=== PATIENT | female | born 1930 | race Caucasian/White ===

== ENCOUNTER 2016-10-02 13:39 | Inpatient (IN) | payer OTHER ==
[~2016-10-02] VITALS: Ht 162.6 cm; Wt 59.3 kg
--- NOTE | ~2016-10-02 | EKG ---
[address] [address] ELECTROCARDIOGRAM REPORT Name: REJI NICK Room #: REG MARY JANE Escobedo#: [id number] Admission: 10/02/16 Attend Phys: Discharge: Date of : 28 Report #: [id number] THIS REPORT FOR: //name// [facility] ED Test Date: 2016-10-02 Test Time: 13:58:00 Pat Name: REJI NICK Department: Room: Gender: F Product Finisher: MZOOK : 1930 Requested By: Lv Koo Order Number: [id number] MD: Truman Bull Measurements Intervals [place] Rate: 77 P: 40 CA: 207 QRS: -24 QRSD: 96 T: 44 QT: 393 QTc: 445 Interpretive Statements Sinus rhythm Borderline left axis deviation Electronically Signed On 10-02-2016 15:58:53 CDT by Truman Bull [email or web address] <ELECTRONICALLY SIGNED> By: Truman Bull MD 10/02/16 1558 [id number] Truman Bull MD /EPI
--- NOTE | ~2016-10-02 | HC ---
[facility] [place] [address] CONSULTATION Name: REJI NICK Room #: 306-P ADM IN M.R.#: [id number] Admission: 10/02/16 Attend Phys: Jonathan Valle MD Discharge: Date of : 28 Report #: [id number] THIS REPORT FOR: //name// CC: David Valle REASON FOR CONSULTATION: I was asked to evaluate concerning fever and leukocytosis. HISTORY OF PRESENT ILLNESS: The patient is an 85-year-old with known history of hiatal hernia, status post Adelaide fundoplication, diverticular disease along with stroke and coronary artery disease. She was diagnosed with a sinus infection approximately 2 weeks ago. She was given a 10-day course of amoxicillin. She finished this course of treatment, but toward the end, she stated feeling worse with not only continued sinus drainage, intermittent cough with purulent sputum production, but increased lower abdominal discomfort associated with diarrhea. She has known diverticular disease and has chronic loose stools with occasional incontinence. No vomiting. No blood in her stool. No blood in her sputum. She has had some chills along with a low-grade fever. On presentation to the emergency room, there was concern about lower abdominal infection, a CAT scan was performed today. I am awaiting final report from this study. PAST MEDICAL HISTORY: She has a past history of hiatal hernia, Adelaide fundoplication, stroke, coronary artery disease, appendectomy, hysterectomy, nephrolithiasis, cholecystectomy, cataract surgery, lactose intolerance, hypothyroidism, and diverticulitis. ALLERGIES: None. MEDICATIONS: As noted on her MAR, which were reviewed, now on ceftriaxone. FAMILY HISTORY: Noncontributory. SOCIAL HISTORY: Nonsmoker, no significant alcohol intake. REVIEW OF SYSTEMS: As noted above. PHYSICAL EXAMINATION: VITAL SIGNS: Afebrile, hemodynamically stable. GENERAL: Alert, cooperative and pleasant, in no acute distress. SKIN: Unremarkable. LYMPH: Unremarkable. EYES: Unremarkable. MOUTH: Unremarkable. She did have some sinus congestion noted to her voice. She had intermittent nonproductive cough. LUNGS: Basilar crackles. [facility] [address] [place] [address] CONSULTATION Name: REJI NICK Room #: 306-P [facility] IN M.R.#: [id number] Admission: 10/02/16 Attend Phys: Jonathan Valle MD Discharge: Date of : 28 Report #: [id number] HEART: Regular, without murmur. ABDOMEN: Soft. She had tenderness predominantly in the left lower quadrant. No hepatosplenomegaly or definite mass. RECTAL: Not performed. No adenopathy. NEUROLOGIC: Nonfocal. LABORATORY STUDIES: Hemoglobin 11, white count 19.5 with 16% bands, and platelet count 282,000. Sodium 136, potassium 3.5, bicarbonate 23, and creatinine 0.9. BNP 1221. Alkaline phosphatase 144. Liver function test normal. Urinalysis had 1+ protein. Chest x-ray showed basilar atelectasis, greatest on the left. IMPRESSION: An 85-year-old with generalized fatigue, chills, intermittent low-grade fever starting with sinus infection and probable bronchitis, now I am suspecting more abdominal issue with diverticulitis. It is possible she could have an area of ischemic colitis. Clostridium difficile colitis would also be possible. I would recommend that we change her antibiotics to Zosyn. We will await CT scan of the abdomen and pelvis. We will image her sinuses to evaluate for sinusitis and obstruction. Check a sputum , stool for Clostridium difficile by PCR. <ELECTRONICALLY SIGNED> By: Galileo Wright MD 10/04/16 1210 1624 [id number] Galileo Wright MD /nt
--- NOTE | ~2016-10-02 | H ---
[facility] [place] [address] HISTORY AND PHYSICAL Name: REJI NICK Room #: 306-P ADM IN M.R.#: [id number] Admission: 10/02/16 Attend Phys: Jonathan Valle MD Discharge: Date of : 28 Report #: [id number] THIS REPORT FOR: //name// CC: David Valle CHIEF COMPLAINT: Abdominal pain, nausea and weakness. HISTORY OF PRESENT ILLNESS: The patient is an 85-year-old female who was admitted to the Emergency Room with about a week history of general weakness. She said about a month ago, she was treated with oral antibiotics for diverticulitis episode. In the last week, she has taken amoxicillin for 10 days related to a spinous infection. However, yesterday, she reported "feeling worse" with symptoms of nausea, anorexia, abdominal discomfort and general weakness. She does not report any significant weight loss, but says she has been feel weak for about a month. She denies any urinary symptoms or shortness of breath. She has had an occasional productive cough. PAST MEDICAL HISTORY: Cerebrovascular disease with remote history of stroke and hiatal hernia, hypothyroidism. PAST SURGICAL HISTORY: Hysterectomy, appendectomy, cholecystectomy. FAMILY HISTORY: Noncontributory. SOCIAL HISTORY: She lives at home. No chronic alcohol or tobacco use. ALLERGIES: None. MEDICATIONS: Ambien, ibuprofen, calcium, Nexium, Levoxyl. REVIEW OF SYSTEMS: She denies headache, chest pain, shortness of breath, dysuria, myalgias, syncope, fall. PHYSICAL EXAMINATION: VITAL SIGNS: Temperature 37.2, pulse 76, respirations 14, blood pressure 113/65, O2 sat 95% on room air. GENERAL: She is awake and alert, in no distress. HEAD AND NECK: Unremarkable. LUNGS: Clear with no wheezing. HEART: Regular, without murmur. ABDOMEN: Soft, normoactive bowel sounds. No rebound or guarding. There is slight tenderness in the suprapubic area. EXTREMITIES: No cyanosis, clubbing or edema. NEUROLOGIC: Motor strength 4/5 throughout. LABORATORY DATA: Urinalysis had protein, ketones, blood, leukocyte esterase and [facility] [address] [place] [address] HISTORY AND PHYSICAL Name: REJI NICK Room #: 306-P ADM IN M.R.#: [id number] Admission: 10/02/16 Attend Phys: Jonathan Valle MD Discharge: Date of : 28 Report #: [id number] a few bacteria. White blood cell count was 23, sodium was 133 with BUN 26, creatinine 1.5. Troponin was negative. Albumin 2.8. ASSESSMENT: 1. Abdominal pain. 2. Leukocytosis. 3. Acute cystitis. 4. Acute kidney injury due to prerenal status. 5. Moderate protein calorie malnutrition, albumin 2.8. PLAN: Blood cultures will be obtained. She will continue empiric Rocephin. I will ask Dr. Galileo Wright to see her in consultation. CT of the abdomen and pelvis will be obtained and Lovenox for DVT prophylaxis. <ELECTRONICALLY SIGNED> By: Mode Briggs MD 10/04/16 1015 1009 [id number] Mode Briggs MD /nt
[~2016-10-02 13:39] MED LIST: ADVIL100 M2 PO; AMBIEN 5 MG TABL5 M1 PO; AMLODIPINE BESYL5 M1 PO; B-12500 MCG PO; BENZONATATE100 MG; CALTRATE 600 +1 EACH; CENTRUM SILVER1 EAC4 PO; CIPRO250 M1 PO; CIPROFLOXACIN500 M1 PO; FLAGYL 250 MG250 MG PO; FLAGYL500 MG PO; IRON325; LEVAQUIN 500 M500 MG PO; LEVOTHROID; LEVOTHROID75 MCG PO; MUCUS ER600 MG; NEXIUM40 MG PO; ZOFRAN ODT4 MG PO
[2016-10-02 13:52] VITALS: BP 95/62
[2016-10-02 14:55] LABS: HEMATOCRIT 37.8 % (37.0-47.0); HEMOGLOBIN 12.5 gm/dL (12.0-15.0); MCH 31.8 pg (26.0-34.0); MCV 96.4 fL (80.0-100.0); RBC 3.92 mil/uL (4.20-5.00); RDW 13.1 % (10.5-14.5)
[2016-10-02 15:01] LABS: ANION GAP 9 mmol/L (7-16); BUN 26 mg/dL (7-18); CHLORIDE 100 mmol/L (98-107); CO2 24 mmol/L (21-32); CREATININE 1.5 mg/dL (0.6-1.0); GLUCOSE 100 mg/dL (74-106); POTASSIUM 3.7 mmol/L (3.5-5.1); SODIUM 133 mmol/L (136-145)
[2016-10-02 15:07] LABS: ALBUMIN 2.8 g/dL (3.4-5.0); ALKALINE PHOSPHATASE 144 U/L (46-116); DIRECT BILIRUBIN 0.2 mg/dL (<0.1-0.3); SGOT 22 U/L (15-37); SGPT 39 U/L (30-65); TOTAL BILIRUBIN 0.8 mg/dL (<0.1-1.0); TOTAL PROTEIN 6.6 g/dL (6.4-8.2); TROPONIN-I < 0.04 ng/mL (<0.04-0.07)
[2016-10-02 17:13] LABS: URINE BLOOD 1+ (Negative); URINE COLOR YELLOW; URINE GLUCOSE-RANDOM* NEGATIVE (Negative); URINE KETONES TRACE (Negative); URINE LEUKOCYTES-REFLEX 1+ (Negative); URINE PROTEIN (DIPSTICK) 1+ (Negative); URINE SPECIFIC GRAVITY 1.015 (1.003-1.035); URINE UROBILINOGEN 0.2 E.U./dl (0.2-1.0)
[2016-10-02 17:17] LABS: URINE BILIRUBIN NEGATIVE (Negative)
[2016-10-02 17:20] LABS: SQUAMOUS 0-3 Few /LPF (0-3); URINE RBC 0-2 Rare /HPF (0-2); URINE WBC-REFLEX 0-5 Rare /HPF (0-5)
[2016-10-02 17:21] LABS: CASTS None Seen /LPF (None Seen); CRYSTALS None Seen /LPF (None Seen)
[2016-10-02 19:56] VITALS: BP 105/64
[2016-10-02 23:30] VITALS: BP 127/59
[2016-10-03 04:00] VITALS: BP 125/59
[2016-10-03 07:46] VITALS: BP 113/65
[2016-10-03 11:39] LABS: HEMATOCRIT 32.7 % (37.0-47.0); MCH 32.2 pg (26.0-34.0); MCHC 33.7 g/dL (28.0-37.0); MCV 95.6 fL (80.0-100.0); PLATELET COUNT 282 thou/uL (150-400); RBC 3.42 mil/uL (4.20-5.00); RDW 12.9 % (10.5-14.5); WBC 19.5 thou/uL (4.0-11.0)
[2016-10-03 11:43] LABS: MANUAL DIFF YES
[2016-10-03 12:08] LABS: CALCIUM 8.3 mg/dL (8.5-10.1); CREATININE 0.9 mg/dL (0.6-1.0); POTASSIUM 3.5 mmol/L (3.5-5.1)
[2016-10-03 12:13] LABS: ABSOLUTE NEUTROPHILS 15.4 thou/uL (1.4-8.2); PLATELET ESTIMATE NORMAL; TOTAL CELL COUNT 100
[2016-10-03 16:35] VITALS: BP 133/55
[2016-10-03 19:50] VITALS: BP 99/59
[2016-10-04 04:10] VITALS: BP 121/66
[2016-10-04 07:09] LABS: HEMATOCRIT 30.8 % (37.0-47.0); HEMOGLOBIN 10.2 gm/dL (12.0-15.0); MCH 31.7 pg (26.0-34.0); MCHC 33.1 g/dL (28.0-37.0); MCV 95.6 fL (80.0-100.0); RBC 3.22 mil/uL (4.20-5.00); RDW 12.9 % (10.5-14.5); WBC 18.9 thou/uL (4.0-11.0)
[2016-10-04 07:28] LABS: CALCIUM 8.2 mg/dL (8.5-10.1); POTASSIUM 3.5 mmol/L (3.5-5.1)
[2016-10-04 08:48] VITALS: BP 107/72
[2016-10-04 15:53] VITALS: BP 120/75
[2016-10-04 20:30] VITALS: BP 123/83
[2016-10-05 04:00] VITALS: BP 131/73
[2016-10-05 05:30] LABS: HEMATOCRIT 29.4 % (37.0-47.0); HEMOGLOBIN 9.9 gm/dL (12.0-15.0); MCH 32.2 pg (26.0-34.0); MCHC 33.5 g/dL (28.0-37.0); MCV 96.1 fL (80.0-100.0); PLATELET COUNT 271 thou/uL (150-400); RBC 3.06 mil/uL (4.20-5.00); RDW 12.7 % (10.5-14.5); WBC 13.6 thou/uL (4.0-11.0)
[2016-10-05 05:31] LABS: MANUAL DIFF YES
[2016-10-05 05:40] LABS: CALCIUM 8.2 mg/dL (8.5-10.1)
[2016-10-05 07:43] VITALS: BP 125/75
[2016-10-05 08:01] LABS: ABSOLUTE NEUTROPHILS 10.5 thou/uL (1.4-8.2); ANISOCYTOSIS SLIGHT; TOTAL CELL COUNT 100
[2016-10-05 14:50] VITALS: BP 126/81
[2016-10-05 20:00] VITALS: BP 116/72
[2016-10-06 04:00] VITALS: BP 137/76
[2016-10-06 05:29] LABS: HEMATOCRIT 32.6 % (37.0-47.0); MCH 32.8 pg (26.0-34.0); MCHC 33.7 g/dL (28.0-37.0); MCV 97.2 fL (80.0-100.0); RBC 3.36 mil/uL (4.20-5.00); RDW 12.8 % (10.5-14.5); WBC 11.8 thou/uL (4.0-11.0)
[2016-10-06 05:59] LABS: CALCIUM 8.5 mg/dL (8.5-10.1); CREATININE 0.9 mg/dL (0.6-1.0); POTASSIUM 3.3 mmol/L (3.5-5.1)
[2016-10-06 07:38] VITALS: BP 142/83
[2016-10-06 15:41] VITALS: BP 161/79
[2016-10-06 15:59] VITALS: BP 161/79
[2016-10-06 19:36] VITALS: BP 147/82
[2016-10-07 04:03] LABS: CREATININE 0.8 mg/dL (0.6-1.0); POTASSIUM 3.6 mmol/L (3.5-5.1)
[2016-10-07 04:34] VITALS: BP 145/82
[2016-10-07 07:30] VITALS: BP 148/88
[2016-10-07 19:50] VITALS: BP 141/84
[2016-10-08 03:40] VITALS: BP 130/81
[2016-10-08 05:00] LABS: ALKALINE PHOSPHATASE 83 U/L (46-116); DIRECT BILIRUBIN < 0.1 mg/dL (<0.1-0.3); SGOT 22 U/L (15-37); SGPT 22 U/L (30-65); TOTAL BILIRUBIN 0.3 mg/dL (<0.1-1.0); TOTAL PROTEIN 5.3 g/dL (6.4-8.2)
[2016-10-08 08:13] VITALS: BP 148/81
[2016-10-08 15:44] VITALS: BP 144/95
[2016-10-08 19:16] VITALS: BP 135/75
[2016-10-08 20:06] VITALS: BP 135/75
[2016-10-09 04:18] VITALS: BP 131/75
[2016-10-09 07:50] VITALS: BP 141/83
[2016-10-09] MEDS ORDERED: LOPERAMIDE 2 MG2 M1 PO (08:29)
[2016-10-09] MEDS ORDERED: FLORANEX PACKET1 GM PO (08:29)
[2016-10-09] MEDS ORDERED: VANCOMYCIN100 MG/M1 PO (08:29)
[2016-10-09 11:06] VITALS: BP 161/79
== END 2016-10-09 11:47 | disposition home health service (06) | DRG 872 ==
LOC: ER 13:39 → EROBS 17:38 → 3N 17:38
PROVIDERS: Emergency Medicine; Internal Medicine Geriatric Medicine; Specialist
DX: A41.9 Sepsis, unspecified organism (principal); A04.7 Enterocolitis due to Clostridium difficile; N39.0 Urinary tract infection, site not specified; N17.9 Acute kidney failure, unspecified; E44.0 Moderate protein-calorie malnutrition; K55.9 Vascular disorder of intestine, unspecified; E86.0 Dehydration; I25.10 Atherosclerotic heart disease of native coronary artery without angina pectoris; D72.829 Elevated white blood cell count, unspecified; E03.9 Hypothyroidism, unspecified; M19.90 Unspecified osteoarthritis, unspecified site; K21.9 Gastro-esophageal reflux disease without esophagitis; K52.9 Noninfective gastroenteritis and colitis, unspecified; Z86.73 Personal history of transient ischemic attack (TIA), and cerebral infarction without residual deficits; Z90.710 Acquired absence of both cervix and uterus; Z90.49 Acquired absence of other specified parts of digestive tract; Z87.442 Personal history of urinary calculi; Z98.42 Cataract extraction status, left eye; Z98.41 Cataract extraction status, right eye; Z68.22 Body mass index [BMI] 22.0-22.9, adult; I25.2 Old myocardial infarction; Z79.899 Other long term (current) drug therapy
CPT/HCPCS: 10094